=== PATIENT | female | born 1985 | race Caucasian/White ===

== ENCOUNTER 2020-12-06 15:38 | Inpatient (IN) | payer OTHER ==
[~2020-12-06] VITALS: Ht 157.5 cm; Wt 95.3 kg
[2020-12-07] MEDS ORDERED: CONCEPT OB CAP1 EACH (08:35)
[2020-12-08] MEDS ORDERED: HUMULIN R100 UNIT/1 SUBCUTANEO (11:21)
[2020-12-08] MEDS ORDERED: HUMULIN N100 UNIT/2 SUBCUTANEO (11:21)
== END 2020-12-08 12:20 | disposition home or self-care (01) | DRG 833 ==
LOC: LDR 15:38 → OB/GYN 12-07 11:07
PROVIDERS: ADMIT Obstetrics & Gynecology; ATTEND Obstetrics & Gynecology
DX: O24.414 Gestational diabetes mellitus in pregnancy, insulin controlled (principal); Z3A.25 25 weeks gestation of pregnancy

== ENCOUNTER 2021-03-04 09:05 | Outpatient (CLI) | payer OTHER ==
[~2021-03-04 09:05] MED LIST: CONCEPT OB CAP1 EACH; HUMULIN N100 UNIT/2 SUBCUTANEO; HUMULIN R100 UNIT/1 SUBCUTANEO
== END 2021-03-04 11:23 | disposition home or self-care (01) ==
LOC: NST 09:05
PROVIDERS: ATTEND Obstetrics & Gynecology
DX: Z34.83 Encounter for supervision of other normal pregnancy, third trimester (principal)

== ENCOUNTER 2021-03-04 11:53 | Outpatient (CLI) | payer OTHER | END 2021-03-04 12:55 | disposition home or self-care (01) | LOC: PRENATAL 11:53 | PROVIDERS: ATTEND Obstetrics & Gynecology Maternal & Fetal Medicine | DX: O26.843 Uterine size-date discrepancy, third trimester (principal); O36.8131 Decreased fetal movements, third trimester, fetus 1; O09.523 Supervision of elderly multigravida, third trimester; O24.410 Gestational diabetes mellitus in pregnancy, diet controlled; Z36.89 Encounter for other specified antenatal screening; Z3A.38 38 weeks gestation of pregnancy ==